=== PATIENT | female | born 1955 | race Caucasian/White ===

== ENCOUNTER → 2022-03-24 | Outpatient (CLI) | payer MEDICARE ==
[2022-03-24 10:39] LABS: Prothrombin Time 10.4 sec (9.0-12.0)
[2022-03-24 14:24] LABS: MCH 28.1 pg (27.0-32.0); MCV 90.7 fL (80.0-97.0); Mean Platelet Volume 9.2 fL (9.5-12.2); NRBC Per 100 WBC 0 /100 WBCS (0.0-0.0); Platelet Count 368 X 10*3/uL (140-440); RBC 4.63 X 10*6/uL (4.10-5.20); RDW 13.6 % (11.5-14.5); WBC 7.07 X 10*3/uL (4.50-10.00)
[2022-03-24 15:09] LABS: % Iron Saturation 25.15 (12.00-45.00); ALT 18 U/L (8-44); AST 27 U/L (13-35); African American GFR (CKD) 104.8 (60.0-200.0); Albumin/Globulin Ratio 1.21 (1.60-3.17); Alkaline Phosphatase 139 U/L (41-126); BUN/Creat Ratio 28.17 Ratio (12.00-20.00); Blood Urea Nitrogen 19.8 mg/dL (9.0-27.0); Calcium 9.1 mg/dL (8.7-10.3); Carbon Dioxide 25.8 mmol/L (20.0-27.5); Chloride 107 mmol/L (96-109); Globulin 3.3 g/dL (1.6-3.3); Glucose 106 mg/dL (70-110); Iron 76 ug/dL (50-170); Non-African American GFR(CKD) 90.5 (60.0-200.0); Phosphorus 2.6 mg/dL (2.4-5.1); Potassium 4.8 mmol/L (3.5-5.5); Sodium 143 mmol/L (135-145); Total Iron Binding Capacity 301 ug/dL (228-460); Total Protein 7.2 g/dL (6.2-8.2)
[2022-03-24 15:54] LABS: Chol/HDL Ratio 2.85 Ratio; LDL Cholesterol,Calculated 82.9 mg/dL (0.0-131.0); VLDL Calculation 15.78 mg/dL (5.00-40.00); Vitamin B12 >2000.0 pg/mL (200.0-944.0)
[2022-03-25 12:06] LABS: Zinc, Serum 69 ug/dL (60-130)
[2022-03-26 06:22] LABS: Vit B1(Thiamine) 62 ug/L (38-122)
[2022-03-26 06:42] LABS: Vitamin A 32 ug/dL (38-106)
[2022-03-26 08:46] LABS: Anabasine Urine <2.0 ng/mL (<2.0)
== END | disposition home or self-care (01) ==
LOC: LABWHC1 08:07
PROVIDERS: ATTEND Surgery Plastic and Reconstructive Surgery
DX: E66.01 Morbid (severe) obesity due to excess calories (principal); E89.1 Postprocedural hypoinsulinemia; E44.0 Moderate protein-calorie malnutrition; E45 Retarded development following protein-calorie malnutrition; E55.9 Vitamin D deficiency, unspecified; K74.1 Hepatic sclerosis; K91.2 Postsurgical malabsorption, not elsewhere classified; D50.8 Other iron deficiency anemias; N19 Unspecified kidney failure; T56.894A Toxic effect of other metals, undetermined, initial encounter; K50.90 Crohn's disease, unspecified, without complications; R94.31 Abnormal electrocardiogram [ECG] [EKG]
CPT/HCPCS: 84255; 84134; 84425; 80061; 80053; 82607; 82728; 82525; 82746; 83540; 83550; 83735; 84100; 84443; 84590; 84630; 85027; 85610; 85730; 82306; 83970; 83036; 80307; 93005; 36415; G0480; G0482; 80323

== ENCOUNTER 2022-04-13 10:00 | Day surgery (SDC) | payer MEDICARE ==
[2022-04-10 08:32] VITALS: BMI 53.2
--- NOTE | 2022-04-13 07:28 | P.GSHP ---
History of Present Illness H&P Date: 04/13/22 CHIEF COMPLAINT: GERD HISTORY OF PRESENT ILLNESS: The patient is a 66-year-old female who presents reports gastroesophageal reflux disease. Upper endoscopy was offered for further evaluation and management. PAST MEDICAL HISTORY: Please see list. PAST SURGICAL HISTORY: Please see list. MEDICATIONS: Please see list. ALLERGIES: Please see list. SOCIAL HISTORY: No illicit drug use FAMILY HISTORY: No reports of Crohn disease or ulcerative colitis. REVIEW OF ORGAN SYSTEMS: CONSTITUTIONAL: No reports of fevers or chills. GI: Denies any blood in stools or constipation. PHYSICAL EXAM: VITAL SIGNS: Stable GENERAL: Well-developed and pleasant in no acute distress. HEENT: No scleral icterus. Extraocular movements grossly intact. Moist buccal mucosa. NECK: Supple without lymphadenopathy. CHEST: Unlabored respirations. Equal bilateral excursions. CARDIOVASCULAR: Regular rate and rhythm. Distal 2+ pulses. ABDOMEN: Soft, nondistended. MUSCULOSKELETAL: No clubbing, cyanosis, or edema. ASSESSMENT: 1. Gastroesophageal reflux disease PLAN: 1. 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 SOB with activity History of Any Multi-Drug Resistant Organisms: None Reported Past Surgical History: Appendectomy, Breast Surgery, Cholecystectomy, Hysterectomy, Joint Replacement, Tonsillectomy Additional Past Surgical History / Comment(s): Breast reduction, left knee replacement, right wrist carpal tunnel, complete hysterectomy after ovarian can cer dx., staging lymph nodes Past Anesthesia/Blood Transfusion Reactions: No Reported Reaction Past Psychological History: No Psychological Hx Reported Smoking Status: Former smoker Past Alcohol Use History: None Reported Additional Past Alcohol Use History / Comment(s): quit smoking 35 yrs ago, hx of 1/2-2 ppd., started smoking age 17. Past Drug Use History: None Reported Medications and Allergies Home Medications Medication Instructions Recorded Confirmed Type Atorvastatin [Lipitor] 10 mg PO DAILY 03/18/22 04/10/22 History Cyanocobalamin (Vitamin B-12) 1,000 mcg PO DAILY 03/18/22 04/10/22 History [Vitamin B12] Escitalopram [Lexapro] 10 mg PO DAILY 03/18/22 04/10/22 History HYDROcodone/APAP 10-325MG [[place] 1 tab PO DIRECTED PRN 03/18/22 04/10/22 History 10-325] Levothyroxine Sodium [Synthroid] 100 mcg PO DAILY 03/18/22 04/10/22 History Meloxicam 15 mg PO DAILY 03/18/22 04/10/22 History Phentermine HCl [Adipex-P] 37.5 mg PO DAILY 03/18/22 04/10/22 History atenoloL [Tenormin] 25 mg PO DAILY 03/18/22 04/10/22 History Cholecalciferol [Vitamin D3 (25 50 mcg PO DAILY 04/10/22 04/10/22 History Mcg = 1000 Iu)] Naproxen Sodium [Aleve] 440 mg PO DIRECTED PRN 04/10/22 04/10/22 History Allergies Allergy/AdvReac Type Severity Reaction Status Date / Time Penicillins Allergy Rash/Hives Verified 04/10/22 08:32 internal stitches AdvReac popped open Uncoded 04/10/22 08:10
[~2022-04-13 10:00] MED LIST: LACTATED RINGERS 1,000 ML IV SCH
[2022-04-13 10:42] VITALS: TEMP 97.5
[2022-04-13] MEDS ORDERED: LIDOCAINE 2% INJ 20 MG/ML (2 ML VIAL) ONE (11:09)
[2022-04-13] MEDS ORDERED: KETAMINE 10 MG/ML 20 ML VIAL ONE (11:09)
[2022-04-13] MEDS ORDERED: MIDAZOLAM 2 MG/2 ML VIAL ONE (11:09)
[2022-04-13] MEDS ORDERED: PROPOFOL 10 MG/ML 20 ML VIAL IV ONE (11:09)
[2022-04-13] MEDS ORDERED: GLYCOPYRROLATE 0.2 MG/ML 2 ML VIAL ONE (11:09)
[2022-04-13] MEDS ORDERED: IV FLUID CONTINUATION 1,000 ML IV ONE (11:21)
[2022-04-13 11:29] VITALS: RESP 18
--- NOTE | 2022-04-13 11:32 | P.PCN ---
Date of Procedure: 04/13/22 Description of Procedure: PREOPERATIVE DIAGNOSIS: Gastroesophageal reflux disease. Morbid obesity. POSTOPERATIVE DIAGNOSIS: Gastroesophageal reflux disease. Morbid obesity. Gastritis. Diaphragmatic hiatal hernia OPERATION: Esophagogastroduodenoscopy with biopsies along antrum and duodenum SURGEON: Bria Schwartz MD ANESTHESIA: MAC. INDICATIONS: The patient is a 66-year-old female who presents with reflux disease. Benefits and risks of the procedure were described. Informed consent was obtained. DESCRIPTION: The patient was brought into the endoscopy suite and laid in the left lateral decubitus position. An Olympus gastroscope was passed along the posterior oropharynx down to the distal esophagus where the squamocolumnar junction was encountered at 37 cm from the incisors. The stomach was entered and no bile reflux was found. Additional findings are listed below. Biopsies with cold fo rceps were obtained of the antrum. The first through third portion of the duodenum was examined. Retroflexion of the scope confirmed Hill grade 3 lower esophageal valve. The squamocolumnar junction demonstrated LA grade B erosive esophagitis. The stomach was desufflated. The patient tolerated the procedure well. FINDINGS: Squamocolumnar junction 37 cm from the incisors. Diaphragmatic hiatus at 40 cm. Hiatal hernia, 3 cm Hill grade 3 lower esophageal valve. LA grade B erosive esophagitis. Duodenitis with biopsies obtained Chronic gastritis RECOMMENDATIONS: Upper endoscopy as needed. Plan - Discharge Summary New Discharge Prescriptions: Continue atenoloL [Tenormin] 25 mg PO DAILY HYDROcodone/APAP 10-325MG [[place] 10-325] 1 tab PO DIRECTED PRN PRN Reason: Pain Cholecalciferol [Vitamin D3 (25 Mcg = 1000 Iu)] 50 mcg PO DAILY Naproxen Sodium [Aleve] 440 mg PO DIRECTED PRN PRN Reason: Pain Atorvastatin [Lipitor] 10 mg PO DAILY Levothyroxine Sodium [Synthroid] 100 mcg PO DAILY Cyanocobalamin (Vitamin B-12) [Vitamin B12] 1,000 mcg PO DAILY Escitalopram [Lexapro] 10 mg PO DAILY Meloxicam 15 mg PO DAILY Discharge Medication List Atorvastatin [Lipitor] 10 mg PO DAILY 03/18/22 [History] Cyanocobalamin (Vitamin B-12) [Vitamin B12] 1,000 mcg PO DAILY 03/18/22 [History] Escitalopram [Lexapro] 10 mg PO DAILY 03/18/22 [History] HYDROcodone/APAP 10-325MG [[place] 10-325] 1 tab PO DIRECTED PRN 03/18/22 [History] Levothyroxine Sodium [Synthroid] 100 mcg PO DAILY 03/18/22 [History] Meloxicam 15 mg PO DAILY 03/18/22 [History] atenoloL [Tenormin] 25 mg PO DAILY 03/18/22 [History] Cholecalciferol [Vitamin D3 (25 Mcg = 1000 Iu)] 50 mcg PO DAILY 04/10/22 [History] Naproxen Sodium [Aleve] 440 mg PO DIRECTED PRN 04/10/22 [History] [facility] [place] [facility] [place] [facility] Patient Instructions/Handouts: *[facility] - (Anesthesia) Endoscopy Discharge Instructions, Upper Endoscopy (DC), Hiatal Hernia (DC) Discharge Disposition: HOME SELF-CARE
[2022-04-13 11:43] VITALS: BP 105/64; PULSE 76
== END 2022-04-13 12:00 | disposition home or self-care (01) ==
LOC: ORWHC2ENDO 10:00
PROVIDERS: ATTEND Surgery Plastic and Reconstructive Surgery
DX: K22.10 Ulcer of esophagus without bleeding (principal); K44.9 Diaphragmatic hernia without obstruction or gangrene; K29.80 Duodenitis without bleeding; K29.50 Unspecified chronic gastritis without bleeding; K21.9 Gastro-esophageal reflux disease without esophagitis; E78.5 Hyperlipidemia, unspecified; I10 Essential (primary) hypertension; M19.90 Unspecified osteoarthritis, unspecified site; G47.33 Obstructive sleep apnea (adult) (pediatric); E07.9 Disorder of thyroid, unspecified; Z85.43 Personal history of malignant neoplasm of ovary; Z90.49 Acquired absence of other specified parts of digestive tract; Z90.710 Acquired absence of both cervix and uterus; Z96.652 Presence of left artificial knee joint; Z87.891 Personal history of nicotine dependence; Z79.899 Other long term (current) drug therapy; Z88.8 Allergy status to other drugs, medicaments and biological substances; Z88.0 Allergy status to penicillin; E66.01 Morbid (severe) obesity due to excess calories
CPT/HCPCS: 88305; 43239; J2250; J2704; J2001

== ENCOUNTER → 2022-05-27 | Outpatient (CLI) | payer MEDICARE ==
--- NOTE | 2022-05-28 08:56 | FL ---
EXAMINATION TYPE: FL barium swallow DATE OF EXAM: 05/27/2022 CLINICAL INDICATION: 65-year-old female R1 3.10. Patient with recent endoscopy where a hiatal hernia was visualized. Patient planned for bariatric surgery. COMPARISON: None Total Fluoroscopy Time: 1 minute 54 seconds 80 images obtained. FINDINGS: The swallowing mechanism is normal and hypopharyngeal anatomy is preserved. The cervical and thoracic portions have a normal course and caliber. Mild intermittent tertiary peris taltic waves are noted in the distal third esophagus. The mucosa is normal and no persistent filling defect is encountered. There is a small to moderate-sized sliding hiatal hernia demonstrated. There is an initial episode of mild gastroesophageal reflux which did not be repeated with Valsalva or positional maneuvers. IMPRESSION: 1. Small to moderate size sliding hiatal hernia. 2. An initial episode of mild gastroesophageal reflux which could not be reproduced later during the exam. 3. Mild tertiary peristaltic waves, likely some age-related dysmotility of the distal esophagus.
== END | disposition home or self-care (01) ==
LOC: RADUSWWP 10:42
PROVIDERS: ATTEND Surgery Plastic and Reconstructive Surgery
DX: K44.9 Diaphragmatic hernia without obstruction or gangrene (principal); K21.9 Gastro-esophageal reflux disease without esophagitis
CPT/HCPCS: 74220

== ENCOUNTER → 2022-07-13 | Outpatient (CLI) | payer MEDICARE ==
[2022-07-13 11:28] VITALS: BMI 53.1
== END ==
LOC: BARWHC3 08:23
PROVIDERS: ATTEND Surgery Plastic and Reconstructive Surgery
DX: E66.01 Morbid (severe) obesity due to excess calories (principal); Z71.3 Dietary counseling and surveillance; Z68.43 Body mass index [BMI] 50.0-59.9, adult; Z91.048 Other nonmedicinal substance allergy status; Z88.0 Allergy status to penicillin
CPT/HCPCS: 97804

== ENCOUNTER → 2022-08-17 | Outpatient (CLI) | payer MEDICARE ==
[2022-08-17 18:08] LABS: African American GFR (CKD) 105.4 (60.0-200.0); Albumin 4.1 g/dL (3.8-4.9); Albumin/Globulin Ratio 0.98 (1.60-3.17); Anion Gap 10.3 mmol/L (10.00-18.00); BUN/Creat Ratio 29.29 Ratio (12.00-20.00); Blood Urea Nitrogen 20.5 mg/dL (9.0-27.0); Calcium 9.7 mg/dL (8.7-10.3); Carbon Dioxide 25.7 mmol/L (20.0-27.5); Globulin 4.2 g/dL (1.6-3.3); Non-African American GFR(CKD) 90.9 (60.0-200.0); Potassium 4.5 mmol/L (3.5-5.5); Total Bilirubin 0.4 mg/dL (0.30-1.20); Total Protein 8.3 g/dL (6.2-8.2)
[2022-08-17 19:11] LABS: Basophils # (A) 0.06 X 10*3/uL (0.00-0.10); Basophils % (A) 0.6 %; Eosinophils # (A) 0.15 X 10*3/uL (0.04-0.35); Eosinophils % (A) 1.5 %; HCT 42.4 % (37.2-46.3); HGB 13.6 g/dL (12.0-15.0); Immature Grans, Automated 0.5 %; Lymphocytes # (A) 1.67 X 10*3/uL (0.90-5.00); MCH 29.4 pg (27.0-32.0); MCHC 32.1 g/dL (32.0-37.0); MCV 91.6 fL (80.0-97.0); Mean Platelet Volume 9.8 fL (9.5-12.2); Monocytes # (A) 0.82 X 10*3/uL (0.20-1.00); Monocytes % (A) 8.3 %; NRBC Per 100 WBC 0 /100 WBCS (0.0-0.0); Neutrophils % (A) 72.1 %; Platelet Count 435 X 10*3/uL (140-440); RBC 4.63 X 10*6/uL (4.10-5.20); RDW 14.2 % (11.5-14.5); WBC 9.85 X 10*3/uL (4.50-10.00)
== END | disposition home or self-care (01) ==
LOC: LABPAT 11:10
PROVIDERS: ATTEND Surgery Plastic and Reconstructive Surgery
DX: Z01.812 Encounter for preprocedural laboratory examination (principal)
CPT/HCPCS: 36415; 80053; 85025

== ENCOUNTER 2022-08-20 12:00 | Inpatient (IN) | payer MEDICARE ==
--- NOTE | 2022-08-20 08:38 | P.GSHP ---
History of Present Illness H&P Date: 08/20/22 CHIEF COMPLAINT: Morbid obesity HISTORY OF PRESENT ILLNESS: Cookie Brewer is a 66-year-old female who comes with lifelong morbid obesity. She is looking into the sleeve gastrectomy. As a result of her morbid obesity, she is developed hypertensive heart disease including diffuse osteoarthritis. At height of 5 feet 4.5 inches, her ideal body weight is 144 pounds. Her highest weight is 309 pounds, body mass index 52.4. She comes in 303 pounds from 309 pounds, 2 months ago. She has lost 6 pounds in 2 months. Her BMI is 51.4. She is 159 pounds overweight. PAST MEDICAL HISTORY: 1. Morbid obesity due to excess calories, BMI 52.4 initial 2. History of ovarian cancer 3. Hyperlipidemia 4. Depressive disorder 5. Hypertensive heart disease 6. Osteoarthritis of the bilateral knees. 7. Osteoarthritis of the lower back 8. Osteoarthritis of the hips 9. Colon polyps 10. Hiatal hernia 11. Folate deficiency 12. Diabetes type II 13. Folate deficiency 14. Vitamin A deficiency 15. Abnormal EKG PAST SURGICAL HISTORY: 1. Appendectomy 2. Breast reduction 3. Cholecystectomy 4. Hysterectomy 5. Left knee replacement 6. Right wrist carpal tunnel 7. Hysterectomy 8. Right knee replacement HOME MEDICATIONS: Home Medications Medication Instructions Recorded Confirmed Atorvastatin [Lipitor] 10 mg PO DAILY 03/18/22 04/29/22 Cyanocobalamin (Vitamin B-12) 1,000 mcg PO DAILY 03/18/22 04/29/22 [Vitamin B-12] Escitalopram [Lexapro] 10 mg PO DAILY 03/18/22 04/29/22 HYDROcodone/APAP 10-325MG [[place] 1 tab PO DIRECTED PRN 03/18/22 04/29/22 10-325] Levothyroxine Sodium [Synthroid] 100 mcg PO DAILY 03/18/22 04/29/22 Meloxicam 15 mg PO DAILY 03/18/22 04/29/22 atenoloL [Tenormin] 25 mg PO DAILY 03/18/22 04/29/22 Cholecalciferol [Vitamin D3 (25 50 mcg PO DAILY 04/10/22 04/29/22 Mcg = 1000 Iu)] Naproxen Sodium [Aleve] 440 mg PO DIRECTED PRN 04/10/22 04/29/22 ALLERGIES: Allergies Allergy/AdvReac Type Severity Reaction Status Date / Time Penicillins Allergy Rash/Hives Verified 04/13/22 10:30 internal stitches AdvReac popped open Uncoded 04/13/22 10:30 SOCIAL HISTORY: Past tobacco use. FAMILY HISTORY: No family history of ulcerative colitis disease or Crohn's disease. Family history of morbid obesity. No lupus in the family. No reports of stomach or esophageal cancer. Her aunt had colon cancer. REVIEW OF ORGAN SYSTEMS: CONSTITUTIONAL: At height of 5 feet 4.5 inches, her ideal body weight is 144 po unds. Her highest weight is 309 pounds, body mass index 52.4. She is 165 pounds overweight. HEENT: Denies any active troubles with vision or hearing. ENDOCRINE: Denies diabetes. Denies hypothyroidism. CARDIOVASCULAR: Denies past reports of palpitations or heart attacks or chest pain. Has hypertensive heart disease. Has hyperlipidemia. RESPIRATORY: Has daytime somnolence and snores. GASTROINTESTINAL: Denies any bright red blood per rectum. No diarrhea. No constipation. Has gastroesophageal reflux disease. GENITOURINARY: Denies bladder urgency. No recent blood in urine. Has hysterectomy with ovarian cancer. MUSCULOSKELETAL: Has lower back pain and joint pain. NEURO: Denies migraines. No seizure disorders. PSYCH: Denies depression. No suicidal ideation. RHEUMATOLOGIC: No lupus. No rheumatoid arthritis. HEMATOLOGIC: Denies any abnormal bleeding or bruising. Denies past history of DVTs. SKIN: No rash. No skin cancer. PHYSICAL EXAM: VITAL SIGNS: Height 5 foot 4.5 inches, weight 303 pounds. BMI 51.4 GENERAL: Well-developed in no acute distress. HEENT: No scleral icterus. Extraocular movements grossly intact. Hears conversational speech. No nasal drainage. NECK: Supple without lymphadenopathy. CHEST: Nonlabored respirations with equal bilateral excursions. CARDIOVASCULAR: Regular rate and regular rhythm. Distal 2+ pulses. ABDOMEN: Obese, soft, nontender, nondistended. MUSCULOSKELETAL: No clubbing, cyanosis. NEURO: No focal or lateralizing signs. Cranial nerves 2 through 12 grossly within normal limits. PSYCH: Appropriate affect. Alert and oriented to person, place and time. SKIN: Good skin turgor. Well perfused. ASSESSMENT: 1. Morbid obesity due to excess calories, BMI 52.4 initial 2. History of ovarian cancer 3. Hyperlipidemia 4. Depressive disorder 5. Hypertensive heart disease 6. Osteoarthritis of the bilateral knees. 7. Osteoarthritis of the lower back 8. Osteoarthritis of the hips 9. Colon polyps 10. Hiatal hernia 11. Folate deficiency 12. Diabetes type II 13. Folate deficiency 14. Vitamin A deficiency 15. Abnormal EKG PLAN: 1. Bariatric options between a sleeve, band and a Dianne-en-Y gastric bypass were reviewed in detail. The patient elected for a sleeve gastrectomy. Robotic assisted approach described. 2. The [place] [facility] Data was also reviewed with benefits and risks as described. 3. An 8 page second-generation bariatric consent form was reviewed in detail including potential of bleeding, infection, leaks, adequate weight loss, nutritional deficiencies which the patient demonstrated understanding of the risks. 4. A 2 week high-protein low caloric 800 kcal diet described to address hepatomegaly. 5. Preoperative labs including complete metabolic panel and CBC with type and screen recommended. 6. DVT prophylaxis per [place] [facility]. 7. Antibiotic prophylaxis. 8. Inpatient hospitalization anticipated for more than 2 nights. 9. All questions and concerns were addressed with the patient. 10. The patient is at elevated risk for perioperative complications with cardiac disease and and hypertensive heart disease. 11. Overall, patient has expressed understanding of bariatric care including postoperative diet and commitment of lifestyle. Patient should benefit from surgical intervention for correction of morbid obesity. 12. 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 SOB with activity History of Any Multi-Drug Resistant Organisms: None Reported Past Surgical History: Appendectomy, Breast Surgery, Cholecystectomy, Hysterectomy, Joint Replacement, Tonsillectomy Additional Past Surgical History / Comment(s): Breast reduction, right knee replacement, right wrist carpal tunnel, complete hysterectomy after ovarian cancer dx., staging lymph nodes Past Anesthesia/Blood Transfusion Reactions: No Reported Reaction Smoking Status: Former smoker Medications and Allergies Home Medications Medication Instructions Recorded Confirmed Type Atorvastatin [Lipitor] 10 mg PO DAILY 03/18/22 08/17/22 History Cyanocobalamin (Vitamin B-12) 1,000 mcg PO DAILY 03/18/22 08/18/22 History [Vitamin B-12] Escitalopram [Lexapro] 10 mg PO DAILY 03/18/22 08/17/22 History HYDROcodone/APAP 10-325MG [[place] 1 tab PO DIRECTED PRN 03/18/22 08/17/22 History 10-325] Levothyroxine Sodium [Synthroid] 100 mcg PO DAILY 03/18/22 08/17/22 History Meloxicam 15 mg PO DAILY 03/18/22 08/17/22 History atenoloL [Tenormin] 25 mg PO DAILY 03/18/22 08/17/22 History Cholecalciferol [Vitamin D3 (25 50 mcg PO DAILY 04/10/22 08/18/22 History Mcg = 1000 Iu)] Multivit-Min/Folic Acid/Fli659 1 each PO DAILY 07/29/22 08/18/22 History [Alive Premium Adult Multivit] Allergies Allergy/AdvReac Type Severity Reaction Status Date / Time Penicillins Allergy Rash/Hives Verified 08/17/22 15:54 internal stitches AdvReac popped open Uncoded 08/17/22 15:54
[~2022-08-20 12:00] MED LIST changes: +CHLORHEXIDINE GLUCONATE 15 ML CUP MUCOUS MEM PRN; +DEXAMETHASONE SOD PHOSPHATE 4 MG/ML 1 ML VIAL IV ONE; +ENOXAPARIN 40 MG/0.4 ML SYRINGE SQ PRN; -LACTATED RINGERS 1,000 ML IV SCH; +ONDANSETRON 4 MG/2 ML VIAL IVP ONE; +PANTOPRAZOLE 40 MG/10 ML VIAL IVP PRN; +ceFAZolin 3 GM in SODIUM CHLORIDE 0.9% 100 ML IVPB PRN
[2022-08-20] MEDS ORDERED: LACTATED RINGERS 1,000 ML IV ONE ×2 (14:30→16:15)
[2022-08-20] MEDS ORDERED: MIDAZOLAM 2 MG/2 ML VIAL IVP ONE (14:41)
[2022-08-20] MEDS ORDERED: fentaNYL (PF) 50 MCG/ML 2 ML AMP ONE (15:23)
[2022-08-20] MEDS ORDERED: GLYCOPYRROLATE 0.2 MG/ML 2 ML VIAL ONE (15:23)
[2022-08-20] MEDS ORDERED: LIDOCAINE 2% INJ 20 MG/ML (2 ML VIAL) ONE (15:23)
[2022-08-20] MEDS ORDERED: NEOSTIGMINE 1 MG/ML 10 ML VIAL ONE (15:23)
[2022-08-20] MEDS ORDERED: KETOROLAC 15 MG/ML 1 ML VIAL ONE (15:23)
[2022-08-20] MEDS ORDERED: ROCURONIUM 10 MG/ML (5 ML VIAL) IV ONE (15:23)
[2022-08-20] MEDS ORDERED: PROPOFOL 10 MG/ML 20 ML VIAL IV ONE (15:23)
[2022-08-20] MEDS ORDERED: SUCCINYLCHOLINE CHLORIDE 200 MG/10 ML VIAL IV ONE (15:23)
[2022-08-20] MEDS ORDERED: MIDAZOLAM 2 MG/2 ML VIAL ONE (15:23)
[2022-08-20] MEDS ORDERED: ePHEDrine 50 MG/ML 1 ML VIAL ONE (15:23)
[2022-08-20] MEDS ORDERED: LIDOCAINE 1%-EPI 1:100,000 20 ML VIAL SQ ONE ×2 (15:55→15:59)
[2022-08-20] MEDS ORDERED: HYDROcodone/APAP 10-325MG 1 EACH TAB PO PRN (17:24)
[2022-08-20] MEDS ORDERED: SODIUM CHLORIDE 0.9% 1,000 ML IV ONE (17:25)
[2022-08-20] MEDS ORDERED: NALOXONE 0.4 MG/ML 1 ML VIAL IV PRN ×2 (17:25→17:28)
[2022-08-20] MEDS ORDERED: diphenhydrAMINE 50 MG/ML 1 ML VIAL IVP PRN (17:25)
[2022-08-20] MEDS: HYDROmorphone 0.5 MG/0.5 ML SYRINGE IVP PRN ×2 (17:33→17:48)
--- NOTE | 2022-08-20 17:34 | P.OP ---
Date of Procedure: 08/20/22 Description of Procedure: SURGEON: NAZARIO RENDON MD PREOPERATIVE DIAGNOSES: 1. Morbid obesity due to excess calories, BMI 52.4 initial 2. History of ovarian cancer 3. Hyperlipidemia 4. Depressive disorder 5. Hypertensive heart disease 6. Osteoarthritis of the bilateral knees. 7. Osteoarthritis of the lower back 8. Osteoarthritis of the hips 9. Colon polyps 10. Hiatal hernia 11. Folate deficiency 12. Diabetes type II 13. Folate deficiency 14. Vitamin A deficiency 15. Abnormal EKG POSTOPERATIVE DIAGNOSES: 1. Morbid obesity due to excess calories, BMI 52.4 initial 2. History of ovarian cancer 3. Hyperlipidemia 4. Depressive disorder 5. Hypertensive heart disease 6. Osteoarthritis of the bilateral knees. 7. Osteoarthritis of the lower back 8. Osteoarthritis of the hips 9. Colon polyps 10. Hiatal hernia 11. Folate deficiency 12. Diabetes type II 13. Folate deficiency 14. Vitamin A deficiency 15. Abnormal EKG OPERATION: 1. Robotic assisted daVinci Xi laparoscopic sleeve gastrectomy with 40-Estonian bougie, multiport. 2. Intraoperative esophagogastroduodenoscopy. ANESTHESIA: Gen. local anesthetic ESTIMATED BLOOD LOSS: 20 mL SPECIMENS REMOVED: Sleeve gastrectomy COMPLICATIONS: None. FINDINGS: 1. Negative intraoperative esophagogastrojejunoscopy leak test. 2. No hepatomegaly and no large hiatus hernia. 3. Total of 7 staplers used including 2 - 60 mm green obot carter and 5 - 60 mm blue robot loads used to create the gastric sleeve. 4. Sleeve gastrectomy, 29 x 6 cm 5. Bleeding along the antrum controlled with vessel sealer and hook cautery INDICATIONS: Cookie Brewer is a 66-year-old female who comes with lifelong m orbid obesity. She is looking into the sleeve gastrectomy. As a result of her morbid obesity, she is developed hypertensive heart disease including diffuse osteoarthritis. At height of 5 feet 4.5 inches, her ideal body weight is 144 pounds. Her highest weight is 309 pounds, body mass index 52.4. She comes in 295 pounds from 303 pounds, 2 months ago. She has lost 8 pounds in 2 months. She is 151 pounds overweight. All surgical options for morbid obesity had been described using the [place] [facility] collaborative comorbidity resolution including complication risk score. A second-generation bariatric consent form was described in detail including the possibility of protein malnutrition, leaks, gastric stricture, venous thrombosis, gastroesophageal reflux disease, need for further surgery for which she demonstrated understanding. Benefits and risks of the procedure were described at length. Informed consent was obtained. DESCRIPTION: The patient was brought into the operating room theater. Preoperatively she had received Lovenox subcutaneously for DVT prophylaxis. Additionally she had Peridex oral solution as an oral decontaminant. After general induction, the abdomen was prepped and draped in standard sterile fashion. An Ioban draping was placed along the abdomen. A robotic da Edwin Xi system was prepped and primed. At 15 cm from the xiphoid, proposed port sites were marked with indelible marker along the anterior axillary line bilaterally, mid axillary line bilaterally with each ports were marked 10 to 15 cm from each other. The robotic stapler port was marked for the right midclavicular line. A 5 mm 0 degrees laparoscopic trocar entry was performed along the left upper quadrant. The abdomen was insufflated to 15 mmHg pressure was tolerated well. Diagnostic laparoscopy demonstrated no injury to bowel, viscera, or mesentery. No evidence of large hiatus hernia was identified. The liver edge was sharp consistent with 2 week low-carb high-protein diet. A 8 mm port was placed along the left upper abdominal wall after exchanging the 5 mm port. A separate 8 mm port was placed along the left lateral abdominal wall. Please note that the ports were placed at least 20 cm away from the target anatomy. Care was taken to check each robotic arms were safely away from collision with the bed or the patient. At the epigastrium, a medium sized Marquita liver retractor was placed under direct visualization with the [employer] placed under the right shoulder of the patient. Next, 12-mm robot stapler port was placed along the right upper quadr ant. The camera 8-mm port was maintained along the epigastrium. The patient was repositioned in reverse Trendelenburg position at 21-degrees after lowering the bed. The robot was docked along the left side of the patient. Using a grasper for arm 4, a vessel sealer for arm 3, including grasper for arm 1, the robotic system was docked and primed as described. Instruments were interchanged by the technical services assistant for stapler loads. The camera was placed at 30- degrees down. I had sat at the console. The pylorus was identified and 6 cm proximally along the greater curvature of the stomach, the short gastrics were mobilized upwards to the angle of His using a vessel sealer. Next, the upper pole of the stomach was adherent to the left tono, which was gently dissected free using atraumatic grasper. I went to the head of the bed and placed 40-Estonian blunt bougie into the stomach. The bougie was readjusted by the nurse roster clerk. Robotic stapler green load 60 mm 2 followed by blue 60 mm x 5 loads were used to create the sleeve. Initial firing was across the antrum of the stomach towards the angle of His. The staple line was linear without corkscrewing. The space from the angularis incisura of the sleeve was approximately 4 cm. Bleeding along the antrum controlled with vessel sealer and hook cautery I then went to the head of the bed to perform the intraoperative esophagogastroduodenoscopy leak test. The bougie was withdrawn. The upper pole of the stomach was bathed using normal saline solution. The scope was withdrawn with careful inspection along the staple line for which no leaks were found along the entire length. Additionally,the sleeve was completely hemostatic without any encroachment along the angularis incisura. Its topology was a soft "J". No stricture was encountered upon placement of the scope. The GI tract was desufflated. The patient tolerated this portion of the procedure well. The scope was completely withdrawn. The robot was undocked. I then rescrubbed into case, whereby the irrigation fluid was aspirated from the abdominal cavity. Tisseel fibrin sealant was placed along the entire staple length. Once dried the Marquita liver retractor was removed. Attention was now brought to removal of the specimen. The distal end of the sleeve gastrectomy specimen was brought out through the 12 mm port at the left upper quadrant. The specimen was gently removed en total. No contamination had occurred during this process. All instruments and pneumoperitoneum including irrigation fluid was removed from the abdominal cavity. The 12 mm port site was closed using 0-Vicryl and Saran Sanchezson and irrigated with diluted hydrogen peroxide. The final incisions were closed using subcuticular interrupted suture of 4-0 Monocryl. Exofin was applied to the skin once the skin had been cleansed. OptiFoam dressing was placed along the stomach extraction site. The sleeve specimen was measured and checked also for leaks which none were found. At the end of the procedure, needle, sponge, and instrument count was verified correct by the instructor adjunct surgical technician. The patient was taken to the postanesthesia care unit in stable condition. She had tolerated the procedure well. Intraoperative films and findings were reviewed with the patient's family.
[2022-08-20] MEDS ORDERED: fentaNYL PCA 500 MCG/50 ML BAG IV PRN (18:00)
[2022-08-20] MEDS: ACETAMINOPHEN IV (For NPO) 1,000 MG in EMPTY BAG 1 BAG IVPB SCH ×2 (18:36→23:49)
[2022-08-20] MEDS: ONDANSETRON 4 MG/2 ML VIAL IVP SCH ×2 (18:37→23:51)
[2022-08-20] MEDS: METOCLOPRAMIDE 5 MG/ML 2 ML VIAL IVP SCH ×2 (18:37→23:51)
[2022-08-20] MEDS: SIMETHICONE 40 MG/0.6 ML DROPS 2,000 MG/30 ML BOTTLE PO SCH ×2 (18:37→23:51)
[2022-08-20] MEDS: LACTATED RINGERS 1,000 ML IV SCH ×2 (19:30→23:45)
[2022-08-20] MEDS ORDERED: DEXAMETHASONE SOD PHOSPHATE 10 MG/ML 1 ML VIAL IVP ONE (20:00)
[2022-08-20] MEDS: PANTOPRAZOLE 40 MG/10 ML VIAL IV SCH (20:54)
[2022-08-20] MEDS: 0.9% NACL WITH KCL 20 MEQ/L 1,000 ML IV SCH (20:54)
[2022-08-20] MEDS: HYDROmorphone 1 MG/ML 1 ML SYRINGE IVP PRN (21:01)
[2022-08-20] MEDS: ALBUTEROL NEBULIZED 2.5 MG/3 ML INHALATION SCH (21:42)
[2022-08-20] MEDS: DEXAMETHASONE SOD PHOSPHATE 4 MG/ML 1 ML VIAL IVP SCH (23:51)
[2022-08-21] MEDS ORDERED: ceFAZolin 3 GM in SODIUM CHLORIDE 0.9% 100 ML IVPB SCH ×2
[2022-08-21] MEDS: 0.9% NACL WITH KCL 20 MEQ/L 1,000 ML IV SCH (03:10)
[2022-08-21] MEDS: HYDROmorphone 1 MG/ML 1 ML SYRINGE IVP PRN ×2 (04:39→10:46)
[2022-08-21] MEDS: METOCLOPRAMIDE 5 MG/ML 2 ML VIAL IVP SCH ×2 (05:58→12:28)
[2022-08-21] MEDS: DEXAMETHASONE SOD PHOSPHATE 4 MG/ML 1 ML VIAL IVP SCH ×2 (05:58→12:27)
[2022-08-21] MEDS: ACETAMINOPHEN IV (For NPO) 1,000 MG in EMPTY BAG 1 BAG IVPB SCH ×2 (05:58→12:22)
[2022-08-21] MEDS: ONDANSETRON 4 MG/2 ML VIAL IVP SCH ×2 (05:58→12:28)
[2022-08-21] MEDS: SIMETHICONE 40 MG/0.6 ML DROPS 2,000 MG/30 ML BOTTLE PO SCH ×2 (05:58→12:28)
[2022-08-21] MEDS ORDERED: LEVOTHYROXINE 100 MCG TAB PO SCH (06:30)
[2022-08-21] MEDS ORDERED: 0.9% NACL WITH KCL 20 MEQ/L 1,000 ML IV SCH (08:00)
[2022-08-21] MEDS: ALBUTEROL NEBULIZED 2.5 MG/3 ML INHALATION SCH ×3 (08:55→16:27)
[2022-08-21] MEDS ORDERED: ENOXAPARIN 40 MG/0.4 ML SYRINGE SQ SCH (09:00)
[2022-08-21] MEDS ORDERED: atenoloL 25 MG TAB PO SCH (09:00)
[2022-08-21] MEDS: PANTOPRAZOLE 40 MG/10 ML VIAL IV SCH (09:32)
--- NOTE | 2022-08-21 10:35 | FL ---
EXAMINATION TYPE: FL UGI DATE OF EXAM: 08/21/2022 CLINICAL HISTORY: Status post gastric sleeve Contrast: Omnipaque 350 50 mL The patient ingested contrast without difficulty or delay. Noted are postsurgical changes of gastric sleeve. There is no evidence for leak or obstruction. Contrast is noted within the duodenum. IMPRESSION: Post-surgical change of gastric sleeve without evidence for obstruction or leak at this point in time.
[2022-08-21 10:45] LABS: Basophils # (A) 0.02 X 10*3/uL (0.00-0.10); Basophils % (A) 0.1 %; Eosinophils # (A) 0 X 10*3/uL (0.04-0.35); Eosinophils % (A) 0 %; HCT 40.5 % (37.2-46.3); HGB 12.7 g/dL (12.0-15.0); Immature Grans, Automated 0.6 %; Lymphocytes # (A) 0.64 X 10*3/uL (0.90-5.00); Lymphocytes % (A) 4.3 %; MCH 28.9 pg (27.0-32.0); MCHC 31.4 g/dL (32.0-37.0); MCV 92.3 fL (80.0-97.0); Mean Platelet Volume 9.4 fL (9.5-12.2); Monocytes # (A) 0.29 X 10*3/uL (0.20-1.00); Monocytes % (A) 1.9 %; NRBC Per 100 WBC 0 /100 WBCS (0.0-0.0); Neutrophils # (A) 14.01 X 10*3/uL (1.80-7.70); Neutrophils % (A) 93.1 %; Platelet Count 337 X 10*3/uL (140-440); RBC 4.39 X 10*6/uL (4.10-5.20); RDW 13.7 % (11.5-14.5); WBC 15.05 X 10*3/uL (4.50-10.00)
[2022-08-21 11:09] LABS: Magnesium 1.8 mg/dL (1.5-2.4)
[2022-08-21 11:11] LABS: African American GFR (CKD) 105.4 (60.0-200.0); Anion Gap 14.3 mmol/L (10.00-18.00); Blood Urea Nitrogen 12.5 mg/dL (9.0-27.0); Calcium 8.9 mg/dL (8.7-10.3); Carbon Dioxide 17.7 mmol/L (20.0-27.5); Non-African American GFR(CKD) 90.9 (60.0-200.0); Phosphorus 2.5 mg/dL (2.4-5.1); Potassium 5.1 mmol/L (3.5-5.5)
[2022-08-21 13:18] VITALS: BMI 47.6
[2022-08-21 13:57] VITALS: BP 124/63; PULSE 59; RESP 17; TEMP 97.9
--- NOTE | 2022-08-21 13:57 | P.DS ---
Providers Date of admission: 08/20/22 13:29 Expected date of discharge: 08/21/22 Attending physician: Bria Schwartz Primary care physician: Tomi Worthington Hospital Course: Discharge diagnosis 1. Morbid obesity due to excess calories, BMI 52.4 initial 2. History of ovarian cancer 3. Hyperlipidemia 4. Depressive disorder 5. Hypertensive heart disease 6. Osteoarthritis of the bilateral knees. 7. Osteoarthritis of the lower back 8. Osteoarthritis of the hips 9. Colon polyps 10. Hiatal hernia 11. Folate deficiency 12. Diabetes type II 13. Folate deficiency 14. Vitamin A deficiency 15. Abnormal EKG 16. Steroid-induced leukocytosis Hospital course Cookie Brewer is a 66-year-old female who comes with lifelong morbid obesity. She is status post robotic-assisted laparoscopic sleeve gastrectomy. Patient tolerated surgery well. Her upper GI shows no evidence of obstruction or leak. She is tolerating diet. Her pain is controlled. She has been up and ambulating. She is having flatus. Denies any difficulty urinating. She is afebrile. She is stable for discharge. Physician Workers Compensation Claims Examiner note has been reviewed by physician. Signing provider agrees with the documented findings, assessment, and plan of care. Patient seen and evaluated with excellent postoperative recovery. Follow-up as outpatient bariatric center described. Patient Condition at Discharge: Good Plan - Discharge Summary Discharge Rx Participant: No New Discharge Prescriptions: New bisacodyL [Dulcolax] 5 mg PO DAILY PRN #10 tab PRN Reason: Constipation Simethicone 40 mg/0.6 ml Drops [Mylicon Drops] 40 mg PO PCHS PRN #30 ml PRN Reason: Gas Omeprazole [PriLOSEC] 40 mg PO DAILY #30 cap Ondansetron Odt [Zofran Odt] 4 mg PO Q8HR PRN #9 tab PRN Reason: Nausea Continue atenoloL [Tenormin] 25 mg PO DAILY HYDROcodone/APAP 10-325MG [[place] 10-325] 1 tab PO DIRECTED PRN PRN Reason: Pain Levothyroxine Sodium [Synthroid] 100 mcg PO DAILY Escitalopram [Lexapro] 10 mg PO DAILY Discontinued Cholecalciferol [Vitamin D3 (25 Mcg = 1000 Iu)] 50 mcg PO DAILY Atorvastatin [Lipitor] 10 mg PO DAILY Cyanocobalamin (Vitamin B-12) [Vitamin B-12] 1,000 mcg PO DAILY Meloxicam 15 mg PO DAILY Multivit-Min/Folic Acid/Yos624 [Alive Premium Adult Multivit] 1 each PO DAILY Discharge Medication List Escitalopram [Lexapro] 10 mg PO DAILY 03/18/22 [History] HYDROcodone/APAP 10-325MG [[place] 10-325] 1 tab PO DIRECTED PRN 03/18/22 [History] Levothyroxine Sodium [Synthroid] 100 mcg PO DAILY 03/18/22 [History] atenoloL [Tenormin] 25 mg PO DAILY 03/18/22 [History] Omeprazole [PriLOSEC] 40 mg PO DAILY #30 cap 08/21/22 [Rx] Ondansetron Odt [Zofran Odt] 4 mg PO Q8HR PRN #9 tab 08/21/22 [Rx] Simethicone 40 mg/0.6 ml Drops [Mylicon Drops] 40 mg PO PCHS PRN #30 ml 08/21/22 [Rx] bisacodyL [Dulcolax] 5 mg PO DAILY PRN #10 tab 08/21/22 [Rx] [place] [facility]Ref[place] Patient Instructions/Handouts: Nutrition after Bariatric Surgery (DC), Laparoscopic Sleeve Gastrectomy (DC) Activity/Diet/Wound Care/Special Instructions: Liquid diet only for 2 weeks No lifting over 4 pounds in 4 weeks May Shower. No soaking in bath tubs 2 weeks Please notify your surgeon if you develop nausea and vomiting including new onset of abdominal pain. Continue to use incentive spirometry to prevent pneumonias. Please continue to ambulate at home to prevent blood clots in legs. Follow-up at the bariatric center. May shower. Dressings to be discontinued by surgeon in the office. Drink 64 oz of fluid daily. Start protein shakes on Wednesday. Notify bariatric center for temp over 101.0, increased pain, drainage from incisions. No straws or carbonated beverages. Liquid diet only. Sugar content should be less than 6 g to avoid dumping syndrome. Take MOM for constipation. CRUSH, OPEN, OR CUT TABLETS LARGER THAN A SIZE OF A TIC TAC Do not take any vitamins or Lipitor until seen by surgeon ok to use Tylenol OTC every 4 to 6 hours as needed for pain if not using the [place] Discharge Disposition: HOME SELF-CARE
[2022-08-22] MEDS ORDERED: bisacodyL 5 MG TABLET.DR PO PRN (08:00)
== END 2022-08-21 17:26 | disposition home or self-care (01) | DRG 621 ==
LOC: 2ORMAIN 13:29 → 4SSUR 17:25
PROVIDERS: ADMIT Surgery Plastic and Reconstructive Surgery; ATTEND Surgery Plastic and Reconstructive Surgery
PROC: 0DB64Z3 Excision of Stomach, Percutaneous Endoscopic Approach, Vertical (ICD-10-PCS; principal; 2022-08-20 14:50)
PROC: 8E0W4CZ Robotic Assisted Procedure of Trunk Region, Percutaneous Endoscopic Approach (ICD-10-PCS; principal; 2022-08-20 14:50)
PROC: 0DJ08ZZ Inspection of Upper Intestinal Tract, Via Natural or Artificial Opening Endoscopic (ICD-10-PCS; principal; 2022-08-20 14:50)
DX: E66.01 Morbid (severe) obesity due to excess calories (principal); Z68.43 Body mass index [BMI] 50.0-59.9, adult; I11.9 Hypertensive heart disease without heart failure; E78.5 Hyperlipidemia, unspecified; F32.A Depression, unspecified; M17.0 Bilateral primary osteoarthritis of knee; M19.09 Primary osteoarthritis, other specified site; T38.0X5A Adverse effect of glucocorticoids and synthetic analogues, initial encounter; D72.829 Elevated white blood cell count, unspecified; M16.0 Bilateral primary osteoarthritis of hip; K44.9 Diaphragmatic hernia without obstruction or gangrene; E53.8 Deficiency of other specified B group vitamins; E11.9 Type 2 diabetes mellitus without complications; E50.9 Vitamin A deficiency, unspecified; R94.31 Abnormal electrocardiogram [ECG] [EKG]; Z96.653 Presence of artificial knee joint, bilateral; G47.30 Sleep apnea, unspecified; Z88.8 Allergy status to other drugs, medicaments and biological substances; Z85.43 Personal history of malignant neoplasm of ovary; Z86.010 Personal history of colon polyps; Z79.899 Other long term (current) drug therapy; Z79.890 Hormone replacement therapy; Z88.0 Allergy status to penicillin; Z87.891 Personal history of nicotine dependence; Z79.1 Long term (current) use of non-steroidal anti-inflammatories (NSAID)
CPT/HCPCS: 74240; 80051; 82310; 82565; 83735; 84100; 84520; 85025; 86850; 86900; 86901; 88307; 94640

== ENCOUNTER → 2022-09-23 | Outpatient (CLI) | payer MEDICARE ==
[2022-09-23 13:26] VITALS: BP 174/87; PULSE 68; TEMP 98.2; BMI 48.2
[2022-09-23 13:28] LABS: INR 0.9 (<1.2); Partial Thromboplastin Time 26.3 sec (22.0-30.0); Prothrombin Time 9.9 sec (9.0-12.0)
--- NOTE | 2022-09-23 14:03 | P.BASOAP ---
Subjective Progress Note Date: 09/23/22 No hearburn. She she occasional indigestion after having ice cram. She is taking synthroid with other medications. She has indigestion with ice cream but not with all foods. She is eating crackers that help her stomach. She gets 60 to 70 grams of protein daily. She does not have a food journal. No troubles with water. Recommend journal. She is 1 month out. Objective - Vital Signs Vital signs: Vital Signs Temp 98.2 F 09/23/22 13:22 Pulse 68 09/23/22 13:22 Resp BP 174/87 09/23/22 13:22 Pulse Ox FiO2 Intake & Output 09/22/22 09/23/22 09/23/22 18:59 06:59 18:59 Weight 129.274 kg Assessment/Plan Plan: Date: 09/23/22 Initial Weight: Initial BMI: Current Weight: 129.274 kg Current BMI: 48.2 Type of Surgery: Total Volume in Band: Previous Volume: Volume Removed: Volume Added: Band Size:
[2022-09-23 19:05] LABS: HGB 12.7 g/dL (12.0-15.0); MCH 28.9 pg (27.0-32.0); MCHC 31.8 g/dL (32.0-37.0); MCV 90.9 fL (80.0-97.0); Mean Platelet Volume 9.5 fL (9.5-12.2); NRBC Per 100 WBC 0 /100 WBCS (0.0-0.0); Platelet Count 381 X 10*3/uL (140-440); WBC 8.28 X 10*3/uL (4.50-10.00)
[2022-09-23 19:22] LABS: ALT 17 U/L (8-44); AST 20 U/L (13-35); African American GFR (CKD) 110.9 (60.0-200.0); Albumin 3.7 g/dL (3.8-4.9); Albumin/Globulin Ratio 1.06 (1.60-3.17); Alkaline Phosphatase 120 U/L (41-126); BUN/Creat Ratio 21.17 Ratio (12.00-20.00); Blood Urea Nitrogen 12.7 mg/dL (9.0-27.0); Calcium 9.1 mg/dL (8.7-10.3); Carbon Dioxide 24.9 mmol/L (20.0-27.5); Chloride 108 mmol/L (96-109); Globulin 3.5 g/dL (1.6-3.3); Glucose 94 mg/dL (70-110); Iron 29 ug/dL (50-170); Magnesium 1.9 mg/dL (1.5-2.4); Non-African American GFR(CKD) 95.7 (60.0-200.0); Phosphorus 2.9 mg/dL (2.4-5.1); Potassium 3.9 mmol/L (3.5-5.5); Sodium 144 mmol/L (135-145); Total Iron Binding Capacity 256 ug/dL (228-460); Total Protein 7.2 g/dL (6.2-8.2)
[2022-09-23 19:44] LABS: LDL Cholesterol,Calculated 131.7 mg/dL (0.0-131.0); Prealbumin 14.8 mg/dL (18.0-42.0)
[2022-09-25 07:04] LABS: Vit B1(Thiamine) 53 ug/L (38-122)
[2022-09-25 14:11] LABS: Vitamin A 38 ug/dL (38-106)
== END ==
LOC: BARWHC3 12:23
PROVIDERS: ATTEND Surgery Plastic and Reconstructive Surgery
DX: E66.01 Morbid (severe) obesity due to excess calories (principal); E89.1 Postprocedural hypoinsulinemia; D50.9 Iron deficiency anemia, unspecified; K90.89 Other intestinal malabsorption; K74.1 Hepatic sclerosis; N19 Unspecified kidney failure; T56.894A Toxic effect of other metals, undetermined, initial encounter; Z68.42 Body mass index [BMI] 45.0-49.9, adult; Z88.0 Allergy status to penicillin; Z91.09 Other allergy status, other than to drugs and biological substances
CPT/HCPCS: 84255; 84134; 84425; 80061; 80053; 82607; 82728; 82525; 82746; 83540; 83550; 83735; 84100; 84443; 84590; 84630; 85027; 85610; 85730; 82306; 83970; 83036; G0463; 99211